=== PATIENT | female | born 1935 | race Caucasian/White ===

== ENCOUNTER 2019-02-20 11:33 | Emergency (ER) | payer MEDICARE ==
[~2019-02-20] VITALS: Ht 172.7 cm; Wt 65.8 kg
[~2019-02-20 11:33] MED LIST: [UNRECOGNIZED DRUG - REMARK]
[2019-02-20] MEDS ORDERED: DIATRIZOATE MEGL/DIATRIZOA SOD 30 ML BTL PO ONE (12:29)
[2019-02-20] MEDS ORDERED: LIDOCAINE JELLY 2% 10ML URO-JET TOP ONE (13:15)
[2019-02-20 14:01] LABS: BASOPHILS % 0.3 % (0.0-1.0); EOSINOPHILS # (AUTO) 0.1 (0.0-0.4); EOSINOPHILS % 0.4 % (0.0-6.0); HEMATOCRIT 35.9 % (34.2-44.1); HEMOGLOBIN 11.9 g/dL (12.0-16.0); LYMPHOCYTES # (AUTO) 1.7 (1.0-3.2); LYMPHOCYTES % 10.7 % (18.0-39.1); MEAN CORPUSCULAR HEMOGLOBIN 30.4 pg (28-32); MEAN CORPUSCULAR HGB CONC 33.1 g/dL (31-35); MEAN CORPUSCULAR VOLUME 91.6 fL (81-99); MONOCYTES # (AUTO) 0.8 (0.2-0.8); MONOCYTES % 5.3 % (4.4-11.3); NEUTROPHILS # (AUTO) 12.9 (2.1-6.9); NEUTROPHILS % 82.7 % (38.7-80.0); PLATELET COUNT 268 x10e3/uL (140-360); RED BLOOD COUNT 3.92 x10e6/uL (3.6-5.1); RED CELL DISTRIBUTION WIDTH 13.4 % (11.7-14.4)
[2019-02-20 14:23] LABS: ALANINE AMINOTRANSFERASE 15 IU/L (0-55); ALBUMIN 3.5 g/dL (3.5-5.0); ALBUMIN/GLOBULIN RATIO 1.5 (0.8-2.0); ALKALINE PHOSPHATASE 52 IU/L (40-150); AMYLASE 52 U/L (25-125); ANION GAP 11.3 mmol/L (8-16); BLOOD UREA NITROGEN 12 mg/dL (7-26); BUN/CREATININE RATIO 17 (6-25); CARBON DIOXIDE 26 mmol/L (22-29); CHLORIDE 107 mmol/L (98-107); EST GLOMERULAR FILTRATION RATE > 60 ML/MIN (60-); GLUCOSE 113 mg/dL (74-118); LIPASE 17 U/L (8-78); POTASSIUM 4.3 mmol/L (3.5-5.1); SODIUM 140 mmol/L (136-145)
[2019-02-20 14:28] LABS: BILIRUBIN,URINE NEGATIVE (NEGATIVE); CLARITY,URINE SL CLOUDY (CLEAR); COLOR,URINE YELLOW (YELLOW); KETONES,URINE NEGATIVE (NEGATIVE); LEUKOCYTE ESTERASE ,URINE NEGATIVE (NEGATIVE); NITRITE,URINE NEGATIVE (NEGATIVE); PROTEIN,URINE DIPSTICK NEGATIVE (NEGATIVE); URINE UROBILINOGEN 0.2 mg/dL (0.2 - 1)
[2019-02-20 14:39] LABS: BACTERIA,URINE MODERATE /HPF
--- NOTE | 2019-02-20 16:45 | Diagnostic Imaging Report ---
EXAMINATION: CT of the abdomen and pelvis with contrast. TECHNIQUE: Spiral CT images of the abdomen and pelvis were performed from the lung bases to the lesser trochanters after the intravenous administration of 100 cc Isovue-370 and the oral administration of Gastrografin. Coronal and sagittal reformatted images were obtained. COMPARISON: None. CLINICAL HISTORY:Constipation, rectal pain DISCUSSION: ABDOMEN/PELVIS: LOWER THORAX:3 mm juxtapleural nodule lateral segment right lower lobe series 2 image 3. Linear scar in the lingula. Calcified granuloma right lower lobe. HEPATOBILIARY: No focal hepatic lesions. No intra-or extrahepatic biliary ductal dilation. The gallbladder is normal. SPLEEN: No splenomegaly. PANCREAS: No focal masses or ductal dilatation. ADRENALS: No adrenal nodules. KIDNEYS/URETERS: Subcentimeter hypoattenuating lesion in the left kidney is too small to further characterize but likely representing a small cyst. No calculi, hydronephrosis, or solid mass lesion. PELVIC ORGANS/BLADDER: Urinary bladder is unremarkable. Uterus is anteflexed and appears normal. No adnexal mass. PERITONEUM/RETROPERITONEUM: No ascites. No pneumoperitoneum. LYMPH NODES: No pelvic sidewall, retroperitoneal, or mesenteric lymphadenopathy. VESSELS: Atherosclerotic calcification of the abdominal aorta and major branch vessels without aneurysmal dilatation. 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 The aneurysm sac measures approximately 9 mm AP x 1.1 cm craniocaudal as seen on sagittal image 58. The aneurysm lies to the right of the origin of the inferior mesenteric artery, which is otherwise patent. Iliac arterial systems are unremarkable. Portal vein, splenic vein, and central superior mesenteric vein are patent. GI TRACT: Large amount of gas and fecal material is noted within the rectum there are a few diverticula scattered along the sigmoid colon without wall thickening or adjacent inflammatory change. Orally ingested contrast material opacifies the distal small bowel and the majority of the large bowel. No small bowel dilatation to suggest presence of obstruction. The stomach is collapsed with prominent rugal folds. The appendix is normal. BONES AND SOFT TISSUE: Diffuse osteopenia. No osseous destructive lesions. 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 No focal soft tissue abnormalities. IMPRESSION: No acute intra-abdominal or pelvic CT abnormalities. No findings of bowel obstruction per clinical query. Large amount of fecal material within the rectum is in keeping with the provided clinical history of constipation. 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 CTA of the abdomen and pelvis is suggested in one year to assess for stability. Minimal sigmoid diverticulosis without findings of diverticulitis. 3 mm right lower lobe pulmonary nodule is likely sequela of prior infectious or inflammatory process even presence of additional right lower lobe calcified granulomata. Follow-up CT scan of the chest in one year is suggested to assess for stability if the patient is at high risk of malignancy per [employer] 2017 guidelines. Signed by: Dr. Alexander Oconnor M.D. on 02/20/2019 4:42 PM
[2019-02-20 18:14] VITALS: BP 149/79
[2019-02-20] MEDS ORDERED: IOPAMIDOL 370 MG/ML 200 ML INFUS..BTL INJ ONE (18:38)
[2019-02-20] MEDS ORDERED: SODIUM CHLORIDE 0.9% 50ML 50 ML ONE (18:38)
== END 2019-02-20 18:32 | disposition home or self-care (01) ==
LOC: ER 11:39
DX: K64.9 Unspecified hemorrhoids (principal); K59.00 Constipation, unspecified
CPT/HCPCS: 36415; 74177; 80053; 81001; 82150; 83690; 84443; 85025; 99283; Q9967

== ENCOUNTER 2021-04-25 12:29 | Emergency (ER) | payer MEDICARE ==
[~2021-04-25] VITALS: Ht 175.3 cm; Wt 44.2 kg
[2021-04-25] MEDS ORDERED: ONDANSETRON HCL INJ 2MG/ML 2ML 2 MG/ML VIAL IV STA (12:56)
[2021-04-25] MEDS ORDERED: SODIUM CHLORIDE 0.9% 1000ML 1,000 ML IV STA (12:56)
[2021-04-25] MEDS ORDERED: ONDANSETRON HCL INJ 2MG/ML 2ML 2 MG/ML VIAL ONE (13:23)
[2021-04-25] MEDS ORDERED: SODIUM CHLORIDE 0.9% 1000ML 1,000 ML ONE (13:23)
[2021-04-25] MEDS ORDERED: ONDANSETRON ODT4 MG PO (15:07)
[2021-04-25] MEDS ORDERED: DICYCLOMINE HCL10 MG PO (15:07)
== END 2021-04-25 15:31 | disposition home or self-care (01) ==
LOC: FSED 12:42
DX: R10.30 Lower abdominal pain, unspecified (principal); R11.2 Nausea with vomiting, unspecified; R19.7 Diarrhea, unspecified; K57.90 Diverticulosis of intestine, part unspecified, without perforation or abscess without bleeding; I10 Essential (primary) hypertension; E78.5 Hyperlipidemia, unspecified; F17.210 Nicotine dependence, cigarettes, uncomplicated
CPT/HCPCS: 74176; 80053; 81003; 85025; 93005; 96374; 99284; J2405; J7030